=== PATIENT | female | born 1985 | race Caucasian/White ===

== ENCOUNTER → 2019-11-12 08:45 | Outpatient (BNVA) | payer MEDICAID, SELFPAY | PROVIDERS: Family Provider Family Medicine; PCP Family Medicine; Visit Provider Emergency Medicine | DX: J11.1 Influenza due to unidentified influenza virus with other respiratory manifestations (principal); J45.21 Mild intermittent asthma with (acute) exacerbation | CPT/HCPCS: 87804 ==

== ENCOUNTER → 2021-09-14 09:05 | Outpatient (BNVA) | payer MEDICAID, SELFPAY | PROVIDERS: Family Provider Family Medicine; PCP Family Medicine; Visit Provider Counselor Professional | DX: F33.1 Major depressive disorder, recurrent, moderate (principal); F43.12 Post-traumatic stress disorder, chronic | CPT/HCPCS: 90832 ==

== ENCOUNTER 2021-12-16 19:02 | Emergency (ER) | payer MEDICAID, SELFPAY ==
--- NOTE | 2021-12-16 19:07 | ED.C_ITS ---
HPI - Psych General: Chief Complaint: Psychiatric Symptoms Stated Complaint: SI Time Seen by Provider: 12/16/21 19:07 History of Present Illness: Ms Florez is a 36-year-old lady with significant past medical history of depression and a PTSD who presents emergency department due to depression and suicidal ideation as well as anxiety. The patient currently expresses extreme stressors at home including living with a man who has a daughter long-term. There have been numerous challenges regarding the daughter's behavior that has resulted in significant deterioration of patient's mental status including depression and suicidal ideation/actions. Earlier today she became so overwhelmed that she cut her wrists superficially and posted photos on either [email or web address] or Facebook. At that point law enforcement was contacted and patient was brought for further evaluation. The patient does report that at that time she no longer wanted to be alive and felt that the child would be better off without her and able to return home. She currently denies feeling suicidal. She otherwise has chronic baseline medical complaints but denies other medical concerns at this time. Intensity of depression and anxiety feeling is moderate to severe. Course has been worsening. No other specific changes in health, exacerbating, relieving factors identified. Patient is not currently on medication and has a history of worsening of depression with medications though she is unsure of exactly which one she has been on before. MD complaint: suicidal ideation and feels depressed Onset (ago): week(s) Duration: getting worse History of same: Yes Relieving factors: none Exacerbating factors: none Context: significant life stressor Associated psychiatric symptoms: depression and suicidal ideation Treatments prior to arrival: none If self harm: admits thoughts of self harm and has acted on plan Review of Systems General: Reports: 10 or more systems reviewed and unremarkable except in HPI and below PFSH ED PFSH: Medical History Mild intermittent asthma with (acute) exacerbation Psychiatric care Family History Mother Hypertension Father Hypertension Social History Smoking and tobacco status: never smoked Second hand smoke exposure: No Alcohol intake: never Current gender identity: Female Physical Exam Const: COMMON NORMALS: alert GENERAL APPEARANCE: cooperative and well developed HENMT: COMMON NORMALS: normocephalic and atraumatic HEAD & SCALP: normocephalic and atraumatic Eye: COMMON NORMALS: conjunctivae normal CONJUNCTIVA: Yes conjunctivae normal SCLERA: sclerae normal Neck/C-Spine: COMMON NORMALS: supple GENERAL: Yes trachea midline Resp: COMMON NORMALS: normal respiratory effort EFFORT & INSPECTION: Yes able to speak in complete sentences Cardio: COMMON NORMALS: regular rate and regular rhythm RATE: regular rate RHYTHM: regular rhythm GI: COMMON NORMALS: Soft to palpation PALPATION: Yes Soft to palpation and No Tenderness to palpation present (GI) PERCUSSION: normal to percussion Extremity: GENERAL: Yes normal exam except as noted and No edema Neuro: COMMON NORMALS: moves all extremities SENSORIUM/ORIENTATION: Yes alert and No Orientation impaired Psych: COMMON NORMALS: mental status grossly normal and Normal thought process present THOUGHT PROCESS: Normal thought process present Skin: NARRATIVE SKIN EXAM: Superficial lacerations without evidence of active hemorrhage on left anterior forearm transversely oriented. Course ED course: - Patient was seen and evaluated by me at bedside -Vital signs obtained - Initial evaluation notable for exam as above - Labs notable for minimal leukocytosis though in the context of mild hemoconcentration. No acute metabolic abnormality. Urinalysis squamous epithelial contamination, in the absence of urinary symptoms and in the context of nitrate negative study this does not require treatment. Toxic ingestion labs negative as tested. - Based on ED evaluation to this point there is no obvious condition that would preclude the patient from inpatient management of psychiatric concerns. Given that the patient took actions during time of feeling suicidal it is reasonable that patient requires further psychiatric evaluation. - Unfortunately we do not currently have beds available. Patient handed off to overnight ED physician pending continued search for beds versus continued ED hold pending inpatient bed available here Note: Click bubbles or prepopulated [place] in note writing are used for assistance with data collection and billing and are inherently more limited than narrative and other text portions of this note. Please use narrative for additional clinic al history and defer to narrative/free test for any case of contradictory information. If information appears in only free text or click bubble it should be considered present or absent as reported. Please contact note technical report writer for clarifications of clinical information or contradictory information. MDM is a brief summary, contradictory or erroneous seeming information should be clarified and full note should be reviewed. Vital Signs: Vital signs: Vital Signs Temperature 98.2 F 12/16/21 19:11 Pulse Rate 91 12/16/21 21:12 Respiratory Rate 17 12/16/21 21:12 Blood Pressure 111/85 12/16/21 21:12 Pulse Oximetry 95 12/16/21 21:12 MDM - Psych Medical Decision Making 36-year-old female not currently on medication with history of PTSD and depression presenting with worsening symptoms secondary to significant life stressors. Patient did have impulsive suicidal ideation and cut herself earlier today. Wounds do not require repair or anything other than local wound care. Patient is satisfactory for further inpatient psychiatric management. Medical Records I reviewed the patient's medical records. Lab Data I reviewed the patient's lab results. : 12/16/21 20:03 12/16/21 20:03 Laboratory Results WBC 10.2 10^3/uL (4.0-10.0) H 12/16/21 20:03 RBC 5.39 10^6/uL (4.1-5.3) H 12/16/21 20:03 Hgb 15.8 g/dL (11.5-15.3) H 12/16/21 20:03 Hct 47.4 % (37.0-47.0) H 12/16/21 20:03 MCV 87.9 fl (81-99) 12/16/21 20:03 MCH 29.3 pg (28.0-34.0) 12/16/21 20:03 MCHC 33.3 g/dL (30.0-36.0) 12/16/21 20:03 RDW 11.5 % (12.1-15.1) L 12/16/21 20:03 Plt Count 317 10^3/cmm (130-400) 12/16/21 20:03 MPV 8.9 fL (7.4-10.4) 12/16/21 20:03 Neut % (Auto) 65.3 % 12/16/21 20:03 Lymph % (Auto) 27.9 % 12/16/21 20:03 [place] % (Auto) 5.4 % 12/16/21 20:03 Eos % (Auto) 0.4 % 12/16/21 20:03 Baso % (Auto) 0.5 % 12/16/21 20:03 Neut # (Auto) 6.65 10^3/uL (1.8-7.7) 12/16/21 20:03 Lymph # (Auto) 2.8 10^3/uL (0.8-4.8) 12/16/21 20:03 [place] # (Auto) 0.6 10^3/uL (0.2-0.9) 12/16/21 20:03 Eos # (Auto) 0.0 10^3/uL (0.0-0.8) 12/16/21 20:03 Baso # (Auto) 0.1 10^3/uL (0.0-0.1) 12/16/21 20:03 Nucleated RBC % (auto) 0 % 12/16/21 20:03 Nucleated RBCs # 0.0 /100WBC 12/16/21 20:03 Sodium 143 mmol/L (136-145) 12/16/21 20:03 Potassium 3.9 mmol/L (3.5-5.1) 12/16/21 20:03 Chloride 106 mmol/L (98-107) 12/16/21 20:03 Carbon Dioxide 23 mmol/L (22-29) 12/16/21 20:03 Anion Gap 17.9 (5-19) 12/16/21 20:03 BUN 10 mg/dL (6-20) 12/16/21 20:03 Creatinine 0.6 mg/dL (0.5-0.9) 12/16/21 20:03 GFR Calculation 114.4 mL/min (90-130) 12/16/21 20:03 Glucose 80 mg/dL (65-115) 12/16/21 20:03 Calculated Osmolality 294 mOsm/kg (285-295) 12/16/21 20:03 Calcium 9.0 mg/dL (8.5-10.5) 12/16/21 20:03 Total Bilirubin 0.5 mg/dL (0.15-1.2) 12/16/21 20:03 AST 17 U/L (0-32) 12/16/21 20:03 ALT 13 U/L (0-33) 12/16/21 20:03 Alkaline Phosphatase 113 IU/L (35-105) H 12/16/21 20:03 Total Protein 7.0 g/dL (6.6-8.7) 12/16/21 20:03 Albumin 4.9 g/dL (3.5-5.2) 12/16/21 20:03 Globulin 2.1 g/dL (1.3-4.6) 12/16/21 20:03 TSH 2.49 uIU/mL (0.27-4.20) 12/16/21 20:03 HCG, Qual Negative (Negative) 12/16/21 19:55 Urine Color Yellow (Yellow) 12/16/21 19: Urine Appearance Clear (CLEAR) 12/16/21 19:55 Urine pH 5 (5-7) 12/16/21 19:55 Ur Specific [place] 1.020 (1.005-1.030) 12/16/21 19:55 Urine Protein Neg (Negative) 12/16/21 19:55 Urine Glucose (UA) Norm (Normal) 12/16/21 19: Urine Ketones Negative (Negative) 12/16/21 19:55 Urine Blood Trace (Negative) H 12/16/21 19:55 Urine Nitrate Negative (Negative) 12/16/21 19: Urine Bilirubin Neg (Negative) 12/16/21 19:55 Urine Urobilinogen Norm mg/dL (Negative) 12/16/21 19:55 Ur Leukocyte Esterase 2+ (Negative) H 12/16/21 19:55 Urine RBC 0-4 /hpf (0-2) H 12/16/21 19:55 Urine WBC 10-15 /hpf (0-5) H 12/16/21 19:55 Ur Squamous Epith Cells 25-40 /hpf (0-5) H 12/16/21 19:55 Amorphous Sediment Not Reportable 12/16/21 19:55 Urine Bacteria 3+ /hpf (NONE) H 12/16/21 19:55 Salicylates 0.5 mg/dL (3-10) L 12/16/21 20:03 Urine Opiates Screen Negative ng/mL (Negative) 12/16/21 19:55 Acetaminophen < 5.0 ug/mL (10-30) L 12/16/21 20:03 Ur Barbiturates Screen Negative ng/mL (Negative) 12/16/21 19:55 Ur Phencyclidine Scrn Negative ng/mL (Negative) 12/16/21 19:55 Ur Amphetamines Screen Negative ng/mL (Negative) 12/16/21 19:55 U Benzodiazepines Scrn Negative ng/mL (Negative) 12/16/21 19:55 Urine Cocaine Screen Negative ng/mL (Negative) 12/16/21 19:55 U Marijuana (THC) Screen Negative ng/mL (Negative) 12/16/21 19:55 Ethyl Alcohol < 10 mg/dL (0-10) 12/16/21 20:03 SARS-CoV-2 Ag (Rapid) Negative (Negative) 12/16/21 23:45 Discharge Plan Discharge Patient Disposition: Admitted As Inpatient Clinical Impression: Suicidal ideation, Depression Condition: Stable Coding Level of Care Code ED Well Drill Operator for Pearl Fwd Exam Comprehensive
[2021-12-16 19:11] VITALS: BP 122/84; PULSE 107; RESP 18; TEMP 36.8; O2SAT 96; BMI 32.9
[2021-12-16 20:13] LABS: Basophils # 0.1 10^3/uL (0.0-0.1); Basophils % 0.5 %; Eosinophils % 0.4 %; Hematocrit 47.4 % (37.0-47.0); Hemoglobin 15.8 g/dL (11.5-15.3); Lymphocytes # 2.8 10^3/uL (0.8-4.8); Lymphocytes % 27.9 %; Mean Corpuscular HGB Conc 33.3 g/dL (30.0-36.0); Mean Corpuscular Hemoglobin 29.3 pg (28.0-34.0); Mean Corpuscular Volume 87.9 fl (81-99); Mean Platelet Volume 8.9 fL (7.4-10.4); Monocytes # 0.6 10^3/uL (0.2-0.9); Monocytes % 5.4 %; Neutrophils # 6.65 10^3/uL (1.8-7.7); Neutrophils % 65.3 %; Nucleated Red Blood Cells % 0 %; Platelet Count 317 10^3/cmm (130-400); Red Blood Count 5.39 10^6/uL (4.1-5.3); Red Cell Distribution Width 11.5 % (12.1-15.1); White Blood Count 10.2 10^3/uL (4.0-10.0)
[2021-12-16 20:14] LABS: Amphetamines Screen Urine Negative (Negative); Barbiturates Screen Urine Negative (Negative); Benzodiazepines Screen Urine Negative (Negative); Cocaine Screen Urine Negative (Negative); Opiate Screen Urine Negative (Negative); PCP Screen Urine Negative (Negative); THC Screen Urine Negative (Negative)
[2021-12-16 20:20] LABS: Add Urine Microscopic? YES; Bilirubin Urine Neg (Negative); Blood Urine Trace (Negative); Glucose Urine UA Norm (Normal); Ketones Urine Negative (Negative); Leukocyte Esterase Urine 2+ (Negative); Nitrate Urine Negative (Negative); Protein Urine Neg (Negative); Urine Appearance Clear (CLEAR); Urine Color Yellow (Yellow); Urobilinogen Urine Norm (Negative); pH Urine 5 (5-7)
[2021-12-16 20:21] LABS: Add Urine Culture? No; Bacteria Urine 3+ /hpf; RBC Urine 0-4 /hpf (0-2); Squamous Epithelial Cell Urine 25-40 /hpf (0-5)
[2021-12-16 20:53] LABS: Alanine Aminotransferase 13 U/L (0-33); Albumin Level 4.9 g/dL (3.5-5.2); Alkaline Phosphatase 113 IU/L (35-105); Anion Gap 17.9 (5-19); Aspartate Amino Transferase 17 U/L (0-32); Blood Urea Nitrogen 10 mg/dL (6-20); Carbon Dioxide 23 mmol/L (22-29); Chloride 106 mmol/L (98-107); Globulin 2.1 g/dL (1.3-4.6); Glomerular Filtration Rate 114.4 mL/min (90-130); Glucose 80 mg/dL (65-115); Osmolality Calculated 294 mOsm/kg (285-295); Potassium 3.9 mmol/L (3.5-5.1); Salicylate 0.5 mg/dL (3-10); Sodium 143 mmol/L (136-145); Thyroid Stimulating Hormone 2.49 uIU/mL (0.27-4.20); Total Bilirubin 0.5 mg/dL (0.15-1.2)
[2021-12-16 21:01] LABS: Acetaminophen < 5.0 ug/mL (10-30); Alcohol Level < 10 mg/dL (0-10)
[2021-12-16 21:12] VITALS: BP 111/85; PULSE 91; RESP 17; O2SAT 95
[2021-12-16 21:52] LABS: HCG Qualitative Urine. Negative (Negative)
[2021-12-17] MEDS: acetaminophen 500 mg Tablet 1000 MG PO (00:33)
--- NOTE | 2021-12-17 03:42 | W.ED.PSYCHS ---
HPI - Psych General: Chief Complaint: Psychiatric Symptoms Stated Complaint: SI Time Seen by Provider: 12/16/21 19:07 History of Present Illness: See below Duration: getting worse Relieving factors: none Exacerbating factors: none Treatments prior to arrival: none PFSH ED PFSH: Medical History Mild intermittent asthma with (acute) exacerbation Psychiatric care Family History Mother Hypertension Father Hypertension Social History Smoking and tobacco status: never smoked Second hand smoke exposure: No Alcohol intake: never Current gender identity: Female Course Vital Signs: Vital signs: Vital Signs Temperature 98.2 F 12/16/21 19:11 Pulse Rate 91 12/16/21 21:12 Respiratory Rate 17 12/16/21 21:12 Blood Pressure 111/85 12/16/21 21:12 Pulse Oximetry 95 12/16/21 21:12 MDM - Psych Medical Decision Making 36-year-old female seen by the previous physician. See his note for the encounter. We have no beds available in our neuropsychiatric facility. It may be some time before 1 becomes available. We spoke with the psychiatric facility in [facility], and they looked at her chart. They agreed to take her in transfer. She is transferred there in stable medical condition this morning. Lab Data : 12/16/21 20:03 12/16/21 20:03 Laboratory Results WBC 10.2 10^3/uL (4.0-10.0) H 12/16/21 20:03 RBC 5.39 10^6/uL (4.1-5.3) H 12/16/21 20:03 Hgb 15.8 g/dL (11.5-15.3) H 12/16/21 20:03 Hct 47.4 % (37.0-47.0) H 12/16/21 20:03 MCV 87.9 fl (81-99) 12/16/21 20:03 MCH 29.3 pg (28.0-34.0) 12/16/21 20:03 MCHC 33.3 g/dL (30.0-36.0) 12/16/21 20:03 RDW 11.5 % (12.1-15.1) L 12/16/21 20:03 Plt Count 317 10^3/cmm (130-400) 12/16/21 20:03 MPV 8.9 fL (7.4-10.4) 12/16/21 20:03 Neut % (Auto) 65.3 % 12/16/21 20:03 Lymph % (Auto) 27.9 % 12/16/21 20:03 [place] % (Auto) 5.4 % 12/16/21 20:03 Eos % (Auto) 0.4 % 12/16/21 20:03 Baso % (Auto) 0.5 % 12/16/21 20:03 Neut # (Auto) 6.65 10^3/uL (1.8-7.7) 12/16/21 20:03 Lymph # (Auto) 2.8 10^3/uL (0.8-4.8) 12/16/21 20:03 [place] # (Auto) 0.6 10^3/uL (0.2-0.9) 12/16/21 20:03 Eos # (Auto) 0.0 10^3/uL (0.0-0.8) 12/16/21 20:03 Baso # (Auto) 0.1 10^3/uL (0.0-0.1) 12/16/21 20:03 Nucleated RBC % (auto) 0 % 12/16/21 20:03 Nucleated RBCs # 0.0 /100WBC 12/16/21 20:03 Sodium 143 mmol/L (136-145) 12/16/21 20:03 Potassium 3.9 mmol/L (3.5-5.1) 12/16/21 20:03 Chloride 106 mmol/L (98-107) 12/16/21 20:03 Carbon Dioxide 23 mmol/L (22-29) 12/16/21 20:03 Anion Gap 17.9 (5-19) 12/16/21 20:03 BUN 10 mg/dL (6-20) 12/16/21 20:03 Creatinine 0.6 mg/dL (0.5-0.9) 12/16/21 20:03 GFR Calculation 114.4 mL/min (90-130) 12/16/21 20:03 Glucose 80 mg/dL (65-115) 12/16/21 20:03 Calculated Osmolality 294 mOsm/kg (285-295) 12/16/21 20:03 Calcium 9.0 mg/dL (8.5-10.5) 12/16/21 20:03 Total Bilirubin 0.5 mg/dL (0.15-1.2) 12/16/21 20:03 AST 17 U/L (0-32) 12/16/21 20:03 ALT 13 U/L (0-33) 12/16/21 20:03 Alkaline Phosphatase 113 IU/L (35-105) H 12/16/21 20:03 Total Protein 7.0 g/dL (6.6-8.7) 12/16/21 20:03 Albumin 4.9 g/dL (3.5-5.2) 12/16/21 20:03 Globulin 2.1 g/dL (1.3-4.6) 12/16/21 20:03 TSH 2.49 uIU/mL (0.27-4.20) 12/16/21 20:03 HCG, Qual Negative (Negative) 12/16/21 19:55 Urine Color Yellow (Yellow) 12/16/21 19:55 Urine Appearance Clear (CLEAR) 12/16/21 19:55 Urine pH 5 (5-7) 12/16/21 19:55 Ur Specific [place] 1.020 (1.005-1.030) 12/16/21 19:55 Urine Protein Neg (Negative) 12/16/21 19:55 Urine Glucose (UA) Norm (Normal) 12/16/21 19:55 Urine Ketones Negative (Negative) 12/16/21 19:55 Urine Blood Trace (Negative) H 12/16/21 19:55 Urine Nitrate Negative (Negative) 12/16/21 19:55 Urine Bilirubin Neg (Negative) 12/16/21 19:55 Urine Urobilinogen Norm mg/dL (Negative) 12/16/21 19:55 Ur Leukocyte Esterase 2+ (Negative) H 12/16/21 19:55 Urine RBC 0-4 /hpf (0-2) H 12/16/21 19:55 Urine WBC 10-15 /hpf (0-5) H 12/16/21 19:55 Ur Squamous Epith Cells 25-40 /hpf (0-5) H 12/16/21 19:55 Amorphous Sediment Not Reportable 12/16/21 19:55 Urine Bacteria 3+ /hpf (NONE) H 12/16/21 19:55 Salicylates 0.5 mg/dL (3-10) L 12/16/21 20:03 Urine Opiates Screen Negative ng/mL (Negative) 12/16/21 19:55 Acetaminophen < 5.0 ug/mL (10-30) L 12/16/21 20:03 Ur Barbiturates Screen Negative ng/mL (Negative) 12/16/21 19:55 Ur Phencyclidine Scrn Negative ng/mL (Negative) 12/16/21 19:55 Ur Amphetamines Screen Negative ng/mL (Negative) 12/16/21 19:55 U Benzodiazepines Scrn Negative ng/mL (Negative) 12/16/21 19:55 Urine Cocaine Screen Negative ng/mL (Negative) 12/16/21 19:55 U Marijuana (THC) Screen Negative ng/mL (Negative) 12/16/21 19:55 Ethyl Alcohol < 10 mg/dL (0-10) 12/16/21 20:03 Discharge Plan Discharge Patient Disposition: Admitted As Inpatient Clinical Impression: Suicidal ideation, Depression Condition: Stable Coding Level of Care Code ED Paper Processing Machine Helper for Pearl James
[2021-12-17 03:44] LABS: SARS Covid-2 Antigen Negative (Negative)
== END 2021-12-17 03:22 | disposition admitted as inpatient to this hospital (09) ==
PROVIDERS: Emergency Provider Emergency Medicine
DX: R45.851 Suicidal ideations (principal); F32.A Depression, unspecified; Z20.822 Contact with and (suspected) exposure to COVID-19
CPT/HCPCS: 80053; 80306; 80307; 81001; 81025; 84443; 85025; 87426; 99283

== ENCOUNTER → 2022-01-25 08:36 | Outpatient (BNVA) | payer MEDICAID, SELFPAY | PROVIDERS: Visit Provider Counselor Professional | DX: F33.2 Major depressive disorder, recurrent severe without psychotic features (principal); F41.1 Generalized anxiety disorder | CPT/HCPCS: 90832 ==

== ENCOUNTER → 2022-09-21 11:00 | Outpatient (BNVA) | payer MEDICAID, SELFPAY | PROVIDERS: Visit Provider Emergency Medicine | DX: J02.9 Acute pharyngitis, unspecified (principal) | CPT/HCPCS: 87071; 87880 ==

== ENCOUNTER → 2022-10-17 13:59 | Outpatient (BNVA) | payer MEDICAID, SELFPAY | PROVIDERS: Visit Provider Nurse Practitioner Family | DX: R68.89 Other general symptoms and signs (principal) | CPT/HCPCS: 87400 ==

== ENCOUNTER 2023-01-21 15:19 | Emergency (ER) | payer MEDICAID, SELFPAY ==
[2023-01-21 15:47] VITALS: BP 116/73; PULSE 87; RESP 18; TEMP 36.4; O2SAT 97
--- NOTE | 2023-01-21 15:56 | XRR_ITS ---
PROCEDURE INFORMATION: Exam: XR Chest Exam date and time: 01/21/2023 4:05 PM Age: 37 years old Clinical indication: Cough and dyspnea; Additional info: Dyspnea/cough TECHNIQUE: Imaging protocol: Radiologic exam of the chest. Views: 1 view. COMPARISON: No relevant prior studies available. FINDINGS: Lungs: Unremarkable. No consolidation. Pleural spaces: Unremarkable. No pleural effusion. No pneumothorax. Heart/Mediastinum: Unremarkable. No cardiomegaly. Bones/joints: Unremarkable. XR/XR chest 1V portable [id number] IMPRESSION: No acute findings.
[2023-01-21 16:18] LABS: Basophils # 0.1 10^3/uL (0.0-0.1); Basophils % 0.6 %; Eosinophils # 0.1 10^3/uL (0.0-0.8); Eosinophils % 1.1 %; Hemoglobin 15.5 g/dL (11.5-15.3); Lymphocytes # 2.5 10^3/uL (0.8-4.8); Lymphocytes % 28.2 %; Mean Corpuscular HGB Conc 33.7 g/dL (30.0-36.0); Mean Corpuscular Hemoglobin 28.2 pg (28.0-34.0); Mean Corpuscular Volume 83.8 fl (81-99); Mean Platelet Volume 9.3 fL (7.4-10.4); Monocytes # 0.6 10^3/uL (0.2-0.9); Monocytes % 6.3 %; Neutrophils # 5.61 10^3/uL (1.8-7.7); Nucleated Red Blood Cells % 0 %; Platelet Count 360 10^3/cmm (130-400); Red Blood Count 5.49 10^6/uL (4.1-5.3); Red Cell Distribution Width 11.7 % (12.1-15.1); White Blood Count 8.9 10^3/uL (4.0-10.0)
--- NOTE | 2023-01-21 16:25 | ED_ITS ---
HPI - Chest Pain General: Chief Complaint: Chest Pain Stated Complaint: Chest Pain, SOB, Left arm pain Time Seen by Provider: 01/21/23 15:55 Source: patient Mode of arrival: ambulatory History of Present Illness: 37-year-old female who presents to the emergency room complaining of shortness of breath left arm pain. Pain began around 1:00 today it is worse with deep inspiration she also states it is worse when she sits up. She not had any fever sweats or chills. No vomiting or diarrhea. MD complaint: chest pain Associated symptoms: Deny abdominal pain, dyspnea, fever(s), nausea or vomiting Review of Systems Const: Denies: fever(s), chills, body aches, change in appetite, fatigue or m alaise ENMT: Denies: throat pain, ear or mastoid pain, nasal discharge or nasal congestion Card: Denies: chest pain, edema, dyspnea on exertion or orthopnea Resp: Denies: dyspnea, productive cough or non-productive cough GI: Denies: abdominal pain, nausea, vomiting, hematemesis, coffee ground emesis, diarrhea, constipation, bloating, hematochezia or melena : Denies: flank pain, difficulty voiding, dysuria, urinary frequency or urinary urgency Skin/Breast: Denies: rash or pruritus PFSH ED PFSH: Medical History Mild intermittent asthma with (acute) exacerbation Psychiatric care Family History Mother Hypertension Father Hypertension Social History Smoking and tobacco status: never smoked Second hand smoke exposure: No Alcohol intake: never Current gender identity: Female Female Reproductive History: Spontaneous abortions: No Physical Exam Const: COMMON NORMALS: no acute distress GENERAL APPEARANCE: cooperative and comfortable ORIENTATION/CONSCIOUSNESS: Yes awake, Yes oriented to person, Yes oriented to place and Yes oriented to time HENMT: COMMON NORMALS: normocephalic, atraumatic and hearing grossly normal bilaterally HEAD & SCALP: normocephalic and atraumatic Chest: OTHER: Chest pain reproducible with movement inspiration and palpation. Resp: COMMON NORMALS: normal respiratory effort, No retractions, No use of accessory muscles and clear to auscultation bilaterally AUSCULTATION: clear to auscultation bilaterally Cardio: COMMON NORMALS: regular rate, regular rhythm and No murmurs present (Cardio) RATE: regular rate RHYTHM: regular rhythm GI: COMMON NORMALS: Soft to palpation and No hepatosplenomegaly present AUSCULTATION: Yes normoactive bowel sounds PALPATION: Yes Soft to palpation, No Tenderness to palpation present (GI), No Guarding due to palpation present (GI) and Yes No hepatosplenomegaly present Extremity: COMMON NORMALS: normal to inspection, capillary refill normal, no clubbing, cyanosis or edema, no calf tenderness and no pedal edema Neuro: SENSORIUM/ORIENTATION: Yes oriented to person, Yes oriented to place and Yes oriented to time Skin: COMMON NORMALS: no rashes or lesions noted GENERAL SKIN EXAM: no rashes or lesions noted Course Vital Signs: Vital signs: Vital Signs Temperature 97.6 F 01/21/23 15:47 Pulse Rate 84 01/21/23 18:57 Respiratory Rate 16 01/21/23 18:57 Blood Pressure 95/73 01/21/23 18:57 Pulse Oximetry 97 01/21/23 18:57 Oxygen Delivery Me thod 01/21/23 17:56 MDM - Chest Pain Medical Decision Making Labs imaging and EKG reviewed. Labs unremarkable EKG does not show any acute ST elevation or any acute changes. We will discharge patient home musculoskeletal chest wall pain follow-up as needed Medical Records I reviewed the patient's medical records. Lab Data I reviewed the patient's lab results. 01/21/23 16:10 01/21/23 16:10 Radiology Impressions Chest X-Ray 01/21/23 15:56 IMPRESSION: No acute findings. Laboratory Results WBC 8.9 10^3/uL (4.0-10.0) 01/21/23 16:10 RBC 5.49 10^6/uL (4.1-5.3) H 01/21/23 16:10 Hgb 15.5 g/dL (11.5-15.3) H 01/21/23 16:10 Hct 46.0 % (37.0-47.0) 01/21/23 16:10 MCV 83.8 fl (81-99) 01/21/23 16:10 MCH 28.2 pg (28.0-34.0) 01/21/23 16:10 MCHC 33.7 g/dL (30.0-36.0) 01/21/23 16:10 RDW 11.7 % (12.1-15.1) L 01/21/23 16:10 Plt Count 360 10^3/cmm (130-400) 01/21/23 16:10 MPV 9.3 fL (7.4-10.4) 01/21/23 16:10 Neut % (Auto) 63.0 % 01/21/23 16:10 Lymph % (Auto) 28.2 % 01/21/23 16:10 [place] % (Auto) 6.3 % 01/21/23 16:10 Eos % (Auto) 1.1 % 01/21/23 16:10 Baso % (Auto) 0.6 % 01/21/23 16:10 Neut # (Auto) 5.61 10^3/uL (1.8-7.7) 01/21/23 16:10 Lymph # (Auto) 2.5 10^3/uL (0.8-4.8) 01/21/23 16:10 [place] # (Auto) 0.6 10^3/uL (0.2-0.9) 01/21/23 16:10 Eos # (Auto) 0.1 10^3/uL (0.0-0.8) 01/21/23 16:10 Baso # (Auto) 0.1 10^3/uL (0.0-0.1) 01/21/23 16:10 Nucleated RBC % (auto) 0 % 01/21/23 16:10 Nucleated RBCs # 0.0 /100WBC 01/21/23 16:10 Sodium 138 mmol/L (136-145) 01/21/23 16:10 Potassium 3.8 mmol/L (3.5-5.1) 01/21/23 16:10 Chloride 102 mmol/L (98-107) 01/21/23 16:10 Carbon Dioxide 22 mmol/L (22-29) 01/21/23 16:10 Anion Gap 17.8 (5-19) 01/21/23 16:10 BUN 12 mg/dL (6-20) 01/21/23 16:10 Creatinine 0.8 mg/dL (0.5-0.9) 01/21/23 16:10 GFR Calculation 81.6 mL/min (90-130) L 01/21/23 16:10 Glucose 95 mg/dL (65-115) 01/21/23 16:10 Calculated Osmolality 286 mOsm/kg (285-295) 01/21/23 16:10 Calcium 9.9 mg/dL (8.5-10.5) 01/21/23 16:10 Total Bilirubin 0.6 mg/dL (0.15-1.2) 01/21/23 16:10 AST 17 U/L (0-32) 01/21/23 16:10 ALT 18 U/L (0-33) 01/21/23 16:10 Alkaline Phosphatase 124 U/L (35-105) H 01/21/23 16:10 Troponin T Baseline 6 ng/L (0-10) 01/21/23 16:10 Total Protein 7.5 g/dL (6.6-8.7) 01/21/23 16:10 Albumin 4.5 g/dL (3.5-5.2) 01/21/23 16:10 Globulin 3.0 g/dL (1.3-4.6) 01/21/23 16:10 Discharge Plan Discharge Patient Disposition: Home Clinical Impression: Chest wall pain Condition: Stable Prescriptions: No Action polyethylene glycol 3350 4 gram powder in packet PO tramadol 50 mg tablet 50 mg PO .COMPLEX PRN Rx Instructions: 50 mg PO daily PRN; lamotrigine 100 mg tablet 100 mg PO TID lacosamide 50 mg tablet 50 mg PO BID cholecalciferol (vitamin D3) 50,000 unit capsule 50,000 unit PO .COMPLEX Rx Instructions: 50,000 units PO monthly; tizanidine 2 mg capsule 2 mg PO Q8H PRN celecoxib [Celebrex] 200 mg capsule 200 mg PO .COMPLEX Rx Instructions: 200 mg PO daily; Flovent HFA 220 mcg/actuation HFA aerosol inhaler 2 puff INHALATION Q12H albuterol sulfate [ProAir HFA] 90 mcg/actuation HFA aerosol inhaler 2 puff INHALATION Q4H PRN cetirizine [Zyrtec] 10 mg tablet 10 mg PO ONCE Nexplanon 68 mg implant 1 implant SUBDERMAL ONCE levothyroxine 150 mcg/mL solution 125 mcg PO ONCE methocarbamol 750 mg tablet 750 mg PO TID 5 Days Qty: 15 0RF ibuprofen 600 mg tablet 600 mg PO TID PRN (Reason: pain) Qty: 30 0RF oseltamivir [Tamiflu] 75 mg capsule 75 mg PO BID 5 Days Qty: 10 0RF fluticasone propionate 50 mcg/actuation spray,suspension 1 spray intranasal DAILY PRN (Reason: allergy symptoms) Qty: 16 0RF Rx Instructions: administer into each nostril amoxicillin-pot clavulanate 875-125 mg tablet 1 tab PO BID Qty: 20 0RF albuterol sulfate 90 mcg/actuation HFA aerosol inhaler 2 puff inhalation QID Qty: 8.5 0RF Rx Instructions: 2 puffs inhaled every 4-6 hours as needed ondansetron 4 mg tablet,disintegrating 4 mg PO Q8H Qty: 10 0RF vortioxetine 5 mg tablet 5 mg PO DAILY 30 Days Qty: 30 3RF citalopram 40 mg tablet 40 mg PO DAILY 30 Days Qty: 30 3RF hydroxyzine pamoate 50 mg capsule 50 mg PO BID PRN (Reason: anxiety or sleep) Qty: 60 3RF mirtazapine 15 mg tablet 15 mg PO .qhs 30 Days Qty: 30 3RF Discharge Orders: Discharge ED (Routine); Ordered 01/21/23 Ordered By: Saeed Lo Referrals: Shaneka lOivo MD [Primary Care Provider] - Discharge Diet: Usual diet Discharge Activity: Increase activity as tolerated Patient Instructions: Opioid Safety, Pain Management Activity Restrictions/Additional Instructions: You were seen today for chest pain. Your chest pain on exam is more related to musculoskeletal its worsened by palpation and by movement. Your EKG and cardiac enzymes were normal. Use ice or the diclofenac as needed to relieve discomfort. Coding Level of Care Code ED Marine Electrician Apprentice for Pearl James
[2023-01-21 16:35] LABS: Alanine Aminotransferase 18 U/L (0-33); Albumin Level 4.5 g/dL (3.5-5.2); Alkaline Phosphatase 124 U/L (35-105); Anion Gap 17.8 (5-19); Aspartate Amino Transferase 17 U/L (0-32); Blood Urea Nitrogen 12 mg/dL (6-20); Calcium 9.9 mg/dL (8.5-10.5); Carbon Dioxide 22 mmol/L (22-29); Chloride 102 mmol/L (98-107); Glomerular Filtration Rate 81.6 mL/min (90-130); Glucose 95 mg/dL (65-115); Osmolality Calculated 286 mOsm/kg (285-295); Potassium 3.8 mmol/L (3.5-5.1); Sodium 138 mmol/L (136-145); Total Bilirubin 0.6 mg/dL (0.15-1.2); Total Protein 7.5 g/dL (6.6-8.7)
[2023-01-21 17:10] LABS: Troponin(5th) Baseline 6 ng/L (0-10)
[2023-01-21 17:56] VITALS: PULSE 83; O2SAT 96
[2023-01-21 18:57] VITALS: BP 95/73; PULSE 84; RESP 16; O2SAT 97
== END 2023-01-21 18:58 | disposition home or self-care (01) ==
PROVIDERS: Emergency Provider Family Medicine; PCP Pediatrics
DX: R07.89 Other chest pain (principal)
CPT/HCPCS: 36415; 71045; 80053; 84484; 85025; 93005; 99285

== ENCOUNTER → 2023-03-14 12:17 | Outpatient (BNVA) | payer MEDICAID, SELFPAY | PROVIDERS: PCP Pediatrics; Referring Provider Pediatrics; Visit Provider Internal Medicine | DX: E03.9 Hypothyroidism, unspecified (principal); E04.2 Nontoxic multinodular goiter; R13.10 Dysphagia, unspecified; Z79.890 Hormone replacement therapy | CPT/HCPCS: 36415; 80061; 84439; 84443; 99204 ==

== ENCOUNTER → 2023-06-25 10:46 | Outpatient (BNVA) | payer MEDICAID, OTHER, SELFPAY | PROVIDERS: PCP Pediatrics; Referring Provider Internal Medicine; Visit Provider Internal Medicine | DX: E03.9 Hypothyroidism, unspecified (principal) | CPT/HCPCS: 84439; 84443 ==

== ENCOUNTER → 2023-07-14 10:25 | Outpatient (BNVA) | payer MEDICAID, SELFPAY | PROVIDERS: PCP Pediatrics; Visit Provider Nurse Practitioner Family | DX: R69 Illness, unspecified (principal); Z20.822 Contact with and (suspected) exposure to COVID-19 | CPT/HCPCS: 87400; 87426 ==

== ENCOUNTER → 2023-09-02 10:26 | Outpatient (BNVA) | payer MEDICAID, SELFPAY | PROVIDERS: PCP Pediatrics; Visit Provider Internal Medicine | DX: E04.2 Nontoxic multinodular goiter (principal); E03.9 Hypothyroidism, unspecified; E66.9 Obesity, unspecified; Z68.30 Body mass index [BMI] 30.0-30.9, adult; Z79.890 Hormone replacement therapy | CPT/HCPCS: 84439; 84443; 99214 ==

== ENCOUNTER → 2023-09-27 15:58 | Outpatient (BNVA) | payer MEDICAID, SELFPAY | PROVIDERS: PCP Pediatrics; Visit Provider Nurse Practitioner Family | DX: S99.911A Unspecified injury of right ankle, initial encounter (principal); W18.43XA Slipping, tripping and stumbling without falling due to stepping from one level to another, initial encounter; M79.661 Pain in right lower leg | CPT/HCPCS: 73590; 73610 ==

== ENCOUNTER → 2023-11-20 11:02 | Outpatient (BNVA) | payer MEDICAID, SELFPAY | PROVIDERS: PCP Pediatrics; Visit Provider Emergency Medicine | DX: B34.9 Viral infection, unspecified (principal); J02.9 Acute pharyngitis, unspecified | CPT/HCPCS: 87400; 87426; 87880 ==

== ENCOUNTER → 2024-02-20 09:46 | Outpatient (BNVA) | payer MEDICAID, SELFPAY | PROVIDERS: PCP Pediatrics; Visit Provider Internal Medicine | DX: E04.2 Nontoxic multinodular goiter (principal); E03.9 Hypothyroidism, unspecified; E66.9 Obesity, unspecified; Z68.29 Body mass index [BMI] 29.0-29.9, adult; Z79.890 Hormone replacement therapy | CPT/HCPCS: 36415; 84439; 84443; 84480; 99214 ==

== ENCOUNTER 2024-11-08 12:59 | Outpatient (CLI) | payer MEDICAID, SELFPAY ==
[2024-11-08 13:58] LABS: Free T4 Free Thyroxine 1.43 ng/dL (0.82-1.77)
[2024-11-09 09:33] LABS: T3 Total 119 ng/dL (76-181)
== END 2024-11-08 13:00 | disposition home or self-care (01) ==
LOC: LAB 13:02
PROVIDERS: Internal Medicine; PCP Pediatrics; Visit Provider Pediatrics
DX: E04.2 Nontoxic multinodular goiter (principal); E03.9 Hypothyroidism, unspecified
CPT/HCPCS: 36415; 84439; 84443; 84480

== ENCOUNTER → 2024-11-11 08:35 | Outpatient (BNVA) | payer MEDICAID, SELFPAY | PROVIDERS: PCP Pediatrics; Visit Provider Internal Medicine | DX: E04.2 Nontoxic multinodular goiter (principal); E03.9 Hypothyroidism, unspecified; E66.3 Overweight; Z68.27 Body mass index [BMI] 27.0-27.9, adult; Z79.890 Hormone replacement therapy | CPT/HCPCS: 99214 ==

== ENCOUNTER 2025-05-09 12:02 | Outpatient (CLI) | payer MEDICAID, SELFPAY ==
[2025-05-09 13:38] LABS: Thyroid Stimulating Hormone 1.83 uIU/mL (0.27-4.20)
[2025-05-10 10:55] LABS: T3 Total 104 ng/dL (76-181)
== END 2025-05-09 12:03 | disposition home or self-care (01) ==
PROVIDERS: PCP Pediatrics; Visit Provider Internal Medicine
DX: E04.2 Nontoxic multinodular goiter (principal); E03.9 Hypothyroidism, unspecified
CPT/HCPCS: 36415; 84439; 84443; 84480

== ENCOUNTER → 2025-05-11 10:35 | Outpatient (BNVA) | payer MEDICAID, SELFPAY | PROVIDERS: PCP Pediatrics; Visit Provider Internal Medicine | DX: E04.2 Nontoxic multinodular goiter (principal); E03.9 Hypothyroidism, unspecified; E66.3 Overweight | CPT/HCPCS: 99214 ==

== ENCOUNTER → 2025-07-26 12:37 | Outpatient (BNVA) | payer MEDICAID, SELFPAY | PROVIDERS: PCP Pediatrics; Visit Provider Internal Medicine | DX: E03.9 Hypothyroidism, unspecified (principal) | CPT/HCPCS: 36415; 84439; 84443; 84480 ==